=== PATIENT | female | born 1985 | race Caucasian/White ===

== ENCOUNTER 2017-03-04 18:09 | Inpatient (IN) | payer OTHER ==
[~2017-03-04] VITALS: Ht 170 cm; Wt 87.6 kg
[2017-03-04] MEDS ORDERED: RINGERS SOLUTION,LACTATED 1,000 ML IV PRN (18:14)
[2017-03-04] MEDS ORDERED: OXYTOCIN 30 UNITS/LACT RINGERS 500 ML IV ONE (18:14)
[2017-03-04] MEDS ORDERED: CITRIC ACID/SODIUM CITRATE 30 ML SOLUTION UDCUP PO PRN (18:15)
[2017-03-04] MEDS ORDERED: FentaNYL CITRATE-PF 100 MCG/2 ML VIAL IVP PRN (18:15)
[2017-03-04] MEDS ORDERED: LIDOCAINE HCL/PF 1% 30 ML VIAL INJ PRN (18:15)
[2017-03-04] MEDS ORDERED: METOCLOPRAMIDE HCL 5 MG/ML 2 ML VIAL IVP PRN (18:15)
[2017-03-04] MEDS ORDERED: METHYLERGONOVINE MALEATE 0.2 MG/ML VIAL IM PRN (18:15)
[2017-03-04 18:39] VITALS: BP 133/76
[2017-03-04] MEDS ORDERED: PREN1TAB80 PO (18:39)
[2017-03-04] MEDS ORDERED: LEVO50TA4 PO (18:39)
[2017-03-04 19:02] LABS: GLUCOSE,POINT OF CARE 89 MG/DL (70-110)
[2017-03-04 19:15] LABS: BASOPHILS % (AUTO) 0.3 % (0.0-2.0); EOSINOPHILS % (AUTO) 1.2 % (1.0-6.0); HEMATOCRIT 35.5 % (36-46); HEMOGLOBIN 12.3 g/dL (12.0-16.0); LYMPHOCYTES % (AUTO) 42.2 % (22.0-44.0); MEAN CORPUSCULAR HEMOGLOBIN 31.8 pg (26.0-34.0); MEAN CORPUSCULAR HGB CONC 34.6 G/dL (31.0-37.0); MEAN CORPUSCULAR VOLUME 92 fL (80-100); MONOCYTES # (AUTO) 0.5 K/uL (0.1-1.0); MONOCYTES % (AUTO) 7.2 % (2.0-9.0); NEUTROPHILS # (AUTO) 3.5 K/uL (1.8-7.7); NEUTROPHILS % (AUTO) 49.1 % (40.0-70.0); RED BLOOD CELL COUNT(AUTO) 3.86 MIL/uL (4.00-5.20); RED CELL DISTRIBUTION WIDTH 13.2 % (11.5-14.5); WHITE BLOOD COUNT (AUTO) 7.2 K/uL (4.5-11.0)
[2017-03-04] MEDS ORDERED: MISOPROSTOL 25 MCG TABLET VG ONE (19:15)
[2017-03-04] MEDS ORDERED: OXYGEN THERAPY IH SCH (20:00)
[2017-03-04] MEDS: RINGERS SOLUTION,LACTATED 1,000 ML IV SCH (20:30)
[2017-03-05] MEDS: MISOPROSTOL 25 MCG TABLET VG SCH ×2 (05:36→10:39)
[2017-03-05] MEDS: RINGERS SOLUTION,LACTATED 1,000 ML IV SCH ×3 (07:24→10:49)
[2017-03-05] MEDS: LEVOTHYROXINE SODIUM 50 MCG TABLET PO SCH (07:39)
[2017-03-05] MEDS ORDERED: LIDOCAINE HCL/PF 1% 30 ML VIAL INJ PRN (10:15)
[2017-03-05] MEDS ORDERED: OXYTOCIN 30 UNITS/LACT RINGERS 500 ML IV PRN (10:15)
[2017-03-05] MEDS ORDERED: METHYLERGONOVINE MALEATE 0.2 MG/ML VIAL IM PRN (10:15)
[2017-03-05] MEDS ORDERED: OXYTOCIN 30 UNITS/LACT RINGERS 500 ML IV ONE (10:15)
[2017-03-05] MEDS ORDERED: FentaNYL/BUPIV 0.125%/NS/PF 200 ML ED ONE (10:17)
[2017-03-05] MEDS ORDERED: BUPIVACAINE HCL/PF 0.25% 30 ML VIAL ONE (10:20)
[2017-03-05] MEDS ORDERED: FentaNYL/BUPIV 0.125%/NS/PF 200 ML ED PRN (10:58)
[2017-03-05] MEDS ORDERED: DiphenhydrAMINE HCL 50 MG/ML VIAL IVP PRN (11:00)
[2017-03-05] MEDS ORDERED: ONDANSETRON HCL 4 MG/2 ML VIAL IVP PRN (11:00)
[2017-03-05] MEDS ORDERED: LIDOCAINE HCL/PF 2% 5 ML VIAL ONE (11:28)
[2017-03-05] MEDS ORDERED: OxyCODONE HCL/ACETAMINOPHEN 5-325 MG TABLET PO PRN ×2 (17:30)
[2017-03-05] MEDS ORDERED: METHYLERGONOVINE MALEATE 0.2 MG TABLET PO PRN (17:30)
[2017-03-05] MEDS: BENZOCAINE 20%/MENTHOL 56 GM SPRAY CANISTER TP PRN (17:57)
[2017-03-05] MEDS: GLYCERIN/WITCH HAZEL LEAF 40 PADS JAR TP PRN (17:57)
[2017-03-05] MEDS: IBUPROFEN 800 MG TABLET PO PRN (17:57)
[2017-03-05] MEDS: LANOLIN 7 GM OINTMENT TP PRN (17:57)
[2017-03-05] MEDS: SENNA/DOCUSATE SODIUM 187-50 MG TABLET PO PRN (21:04)
[2017-03-05] MEDS: MAGNESIUM HYDROXIDE SUSPENSION 30 ML UDCUP PO PRN (21:04)
[2017-03-06] MEDS: IBUPROFEN 800 MG TABLET PO PRN ×2 (02:28→08:43)
[2017-03-06 05:37] LABS: BASOPHILS # (AUTO) 0.03 K/uL (0.00-0.20); BASOPHILS % (AUTO) 0.2 % (0.0-2.0); EOSINOPHILS # (AUTO) 0.07 K/uL (0.00-0.70); EOSINOPHILS % (AUTO) 0.58 % (1.0-6.0); HEMATOCRIT 33.3 % (36-46); HEMOGLOBIN 11.3 g/dL (12.0-16.0); LYMPHOCYTES % (AUTO) 23.8 % (22.0-44.0); MEAN CORPUSCULAR HGB CONC 33.8 G/dL (31.0-37.0); MEAN CORPUSCULAR VOLUME 95 fL (80-100); MONOCYTES # (AUTO) 0.7 K/uL (0.1-1.0); MONOCYTES % (AUTO) 5.7 % (2.0-9.0); NEUTROPHILS # (AUTO) 8.7 K/uL (1.8-7.7); NEUTROPHILS % (AUTO) 69.7 % (40.0-70.0); RED BLOOD CELL COUNT(AUTO) 3.52 MIL/uL (4.00-5.20); RED CELL DISTRIBUTION WIDTH 12.8 % (11.5-14.5); WHITE BLOOD COUNT (AUTO) 12.4 K/uL (4.5-11.0)
[2017-03-06] MEDS: LEVOTHYROXINE SODIUM 50 MCG TABLET PO SCH (07:29)
[2017-03-06] MEDS: MAGNESIUM HYDROXIDE SUSPENSION 30 ML UDCUP PO PRN (08:43)
[2017-03-06] MEDS: BENZOCAINE 20%/MENTHOL 56 GM SPRAY CANISTER TP PRN (08:44)
[2017-03-06] MEDS: GLYCERIN/WITCH HAZEL LEAF 40 PADS JAR TP PRN (08:44)
[2017-03-06] MEDS: SENNA/DOCUSATE SODIUM 187-50 MG TABLET PO PRN (08:44)
[2017-03-06] MEDS: LANOLIN 7 GM OINTMENT TP PRN (08:45)
[2017-03-06 12:11] LABS: BASOPHILS % (AUTO) 0.3 % (0.0-2.0); EOSINOPHILS % (AUTO) 0.8 % (1.0-6.0); HEMATOCRIT 35.4 % (36-46); HEMOGLOBIN 12.2 g/dL (12.0-16.0); LYMPHOCYTES # (AUTO) 2.5 K/uL (1.0-4.8); LYMPHOCYTES % (AUTO) 24.1 % (22.0-44.0); MEAN CORPUSCULAR HGB CONC 34.5 G/dL (31.0-37.0); MEAN CORPUSCULAR VOLUME 93 fL (80-100); MONOCYTES # (AUTO) 0.5 K/uL (0.1-1.0); MONOCYTES % (AUTO) 5.1 % (2.0-9.0); NEUTROPHILS # (AUTO) 7.4 K/uL (1.8-7.7); NEUTROPHILS % (AUTO) 69.7 % (40.0-70.0); RED BLOOD CELL COUNT(AUTO) 3.81 MIL/uL (4.00-5.20); RED CELL DISTRIBUTION WIDTH 13.1 % (11.5-14.5); WHITE BLOOD COUNT (AUTO) 10.6 K/uL (4.5-11.0)
[2017-03-06 12:24] LABS: ALANINE AMINOTRANSFERASE 17 U/L (12-78); ALBUMIN 2.3 g/dL (3.4-5.0); ANION GAP 9 mmol/L (8-16); ASPARTATE AMINOTRANSFERASE 22 U/L (15-37); BILIRUBIN,TOTAL 0.3 mg/dL (0.1-1.0); CALCIUM, TOTAL 8.6 mg/dL (8.8-10.5); CARBON DIOXIDE 23 mmol/L (22-29); CHLORIDE 107 mmol/L (98-107); CREATININE 0.78 mg/dL (0.60-1.30); GLOMERULAR FILTR. RATE CALC > 60 mL/min (>60); POTASSIUM 4.3 mmol/L (3.5-5.1); SODIUM SERUM 139 mmol/L (136-145); TOTAL PROTEIN, SERUM 5.9 g/dL (6.4-8.2); UREA NITROGEN, BLOOD 7 mg/dL (7-18)
[2017-03-06 12:33] LABS: URIC ACID 5.1 mg/dL (2.6-7.2)
[2017-03-06] MEDS ORDERED: IBUP-2070 PO (15:50)
[2017-03-06] MEDS ORDERED: DSS100 PO (15:53)
== END 2017-03-06 17:30 | disposition home or self-care (01) | DRG 775 ==
LOC: 4S 18:09 → OBSVTOIN 18:09
PROVIDERS: ADMIT Specialist; ATTEND Specialist
PROC: 10E0XZZ Delivery of Products of Conception, External Approach (ICD-10-PCS; principal; 2017-03-05)
PROC: 0HQ9XZZ Repair Perineum Skin, External Approach (ICD-10-PCS; 2017-03-05)
PROC: 3E0R3CZ (ICD-10-PCS; 2017-03-05)
PROC: 00HU33Z Insertion of Infusion Device into Spinal Canal, Percutaneous Approach (ICD-10-PCS; 2017-03-05)
DX: O48.0 Post-term pregnancy (principal); O70.0 First degree perineal laceration during delivery; O71.82 Other specified trauma to perineum and vulva; O99.284 Endocrine, nutritional and metabolic diseases complicating childbirth; E03.9 Hypothyroidism, unspecified; Z37.0 Single live birth; Z3A.40 40 weeks gestation of pregnancy
CPT/HCPCS: 82962; 84550; 86850; 86900; 86901; J2590; J3490; J7120